=== PATIENT | male | born 1980 | race Hispanic/Latino ===

== ENCOUNTER 2019-10-04 15:39 | Emergency (ER) | payer OTHER ==
[2019-10-04] MEDS ORDERED: Morphine 4 MG/ML VIAL ONE ×2 (17:56→19:43)
[2019-10-04] MEDS ORDERED: Adacel (T-DAP) 0.5 ML SYRINGE ONE (17:57)
[2019-10-04 18:00] LABS: #Eosinphils 0.1 thou/uL (0.0-0.7); #Lymphocytes 1.3 thou/uL (1.20-3.40); #Monocytes 0.6 thou/uL (0.11-0.59); #Neutrophils 10.9 thou/uL (1.40-6.50); %Eosinophils 0.6 % (0.0-10.0); %Lymphocytes 10.2 % (21.0-51.0); %Monocytes 4.4 % (0.0-10.0); %Neutrophils 84.7 % (42.0-75.0); Hemoglobin 16.4 g/dL (14.0-18.0); Mean Corpuscular HGB CONC 34.7 g/dL (32.0-36.0); Mean Corpuscular Hemoglobin 28.8 pg (27.0-31.0); Mean Platelet Volume 9.3 fL (7.4-10.4); Platelet Count 253 thou/uL (130-400); RBC Distribution Width 11.4 % (11.5-14.5); White Blood Cell (WBC) Count 12.9 thou/uL (4.8-10.8)
[2019-10-04 18:20] LABS: ALT (SGPT) 30 U/L (8-55); AST (SGOT) 30 U/L (5-34); Albumin 4.7 g/dL (3.5-5.0); Alkaline Phosphatase 90 U/L (40-110); Anion Gap 13 mmol/L (10-20); BUN (Urea Nitrogen) 17 mg/dL (8.9-20.6); Bilirubin, Total 0.6 mg/dL (0.2-1.2); Calc. Creatinine Clearance 0 mL/min (70-130); Calcium 9.5 mg/dL (7.8-10.44); Carbon Dioxide 29 mmol/L (22-29); Chloride 103 mmol/L (98-107); Estimated GFR-MDRD 61; Globulin 3.5 g/dL (2.4-3.5); Glucose 102 mg/dL (70-105); Potassium 3.9 mmol/L (3.5-5.1); Protein, Total 8.2 g/dL (6.0-8.3); Sodium 141 mmol/L (136-145)
--- NOTE | 2019-10-04 18:28 | CT ---
CT of right knee performed without contrast enhancement HISTORY: Laceration to right knee. COMPARISON: None. FINDINGS: There is a soft tissue laceration which is along the medial edge of the patella there is no joint effusion or any findings that would suggest that the joint space has been violated. No fractures are visualized. IMPRESSION: Soft tissue injury along the medial side of the patella and quadriceps region no signs of any violation of the joint space or evidence for disruption of the quadriceps tendon.
[2019-10-04] MEDS ORDERED: Lidocaine 1% w/Epinephrine 1:100K 20 ML VIAL ONE (19:13)
== END 2019-10-04 19:59 | disposition home or self-care (01) ==
LOC: ERS 15:39
DX: S81.011A Laceration without foreign body, right knee, initial encounter (principal); Z23 Encounter for immunization; W27.0XXA Contact with workbench tool, initial encounter
CPT/HCPCS: 12002; 80053; 85025; 90471; 90715; 96365; 96375; 96376; J0690; J2270

== ENCOUNTER 2019-10-16 09:38 | Emergency (ER) | payer SELFPAY ==
[2019-10-16] MEDS ORDERED: Bacitracin 1 PK ONE (12:04)
== END 2019-10-16 12:02 | disposition home or self-care (01) ==
LOC: ERS 09:38
DX: S71.112A Laceration without foreign body, left thigh, initial encounter (principal); W27.0XXA Contact with workbench tool, initial encounter
CPT/HCPCS: 99281

== ENCOUNTER 2022-09-09 08:24 | Outpatient (CLI) | payer OTHER | END 2022-09-09 08:25 | disposition home or self-care (01) | LOC: RAD 08:24 | PROVIDERS: ATTEND Physician Assistant Medical | DX: R13.10 Dysphagia, unspecified (principal) | CPT/HCPCS: 74220 ==